=== PATIENT | female | born 1980 | race Caucasian/White ===

== ENCOUNTER 2016-07-26 07:06 | Emergency (ER) | payer SELFPAY ==
[2016-07-26] MEDS ORDERED: HYDROCODONE/ACETAMINOPHEN 5/325MG TABLET ONE (07:27)
[2016-07-26] MEDS ORDERED: IBUPROFEN 600 MG TABLET ONE (07:27)
== END 2016-07-26 07:37 | disposition home or self-care (01) ==
LOC: ED 07:06
DX: H60.501 Unspecified acute noninfective otitis externa, right ear (principal); F17.210 Nicotine dependence, cigarettes, uncomplicated
CPT/HCPCS: 99283 ×2; A9270 ×2